=== PATIENT | female | born 1975 | race Caucasian/White ===

== ENCOUNTER 2018-08-05 12:47 | Emergency (ER) | payer OTHER ==
--- NOTE | 2018-08-05 12:56 | Emergency Department Record ---
History of Present Illness - General Chief complaint: Flank Pain Stated complaint: rt flank pain Time Seen by Provider: 08/05/18 12:55 Source: Patient, Old records reviewed Mode of Arrival: Ambulatory Limitations: No limitations - History of Present Illness Initial comments: 43 yo female presents with right flank pain that has been fairly constant since the weekend. The pain remains in the right side. No fevers, chills, nausea, vomiting or diarrhea. No dysuria. No hematuria. The intensity does fluctuate at times. No history of renal stones. No other recent changes in her health. PCP is in [place]. She has an IUD in place. The pain does not seem to change with movement. No rash. MD Complaint: Other (Right Flank Pain) -: Days(s) Radiation: R flank Severity: Moderate Quality: Aching, Sharp Consistency: Constant Improves with: None Worsens with: None Associated Symptoms: Denies other symptoms - Related Data Additional Female Hx Detail: Contraception Home Medications Medication Instructions Recorded Confirmed Last Taken Sertraline HCl [Zoloft] 25 mg PO DAILY 08/05/18 08/05/18 Unknown Previous Rx's Medication Instructions Recorded Cyclobenzaprine HCl [Flexeril] 10 mg PO TID #15 tablet 08/05/18 Allergies Allergy/AdvReac Type Severity Reaction Status Date / Time naproxen [From Naprosyn] AdvReac VOMITING Verified 08/05/18 12:57 Review of Systems Constitutional: Denies: Chills, Fever, Malaise, Weakness Eyes: Denies: Eye discharge ENT: Denies: Congestion, Throat pain Respiratory: Denies: Cough, Dyspnea Cardiovascular: Denies: Chest pain, Palpitations, Syncope Endocrine: Denies: Fatigue Gastrointestinal: Reports: As per HPI, Abdominal pain Genitourinary: Denies: Dysuria, Hematuria, Urgency Musculoskeletal: Reports: As per HPI, Back pain. Denies: Arthralgia Skin: Denies: Bruising, Change in color, Rash Neurological: Denies: Confusion, Headache, Weakness Psychiatric: Denies: Anxiety Hematological/Lymphatic: Denies: Blood Clots, Easy bleeding, Easy bruising, Swollen glands Past Medical History - SOCIAL HISTORY Smoking Status: Never smoker Drug Use: None - RESPIRATORY Hx Respiratory Disorders: No - CARDIOVASCULAR Hx Cardio Disorders: No - NEURO Hx Neuro Disorders: No - GI Hx Reflux: Yes Hx Hiatal Hernia: Yes - Hx Genitourinary Disorders: No - ENDOCRINE Hx Diabetes: No Hx Thyroid Disease: No - MUSCULOSKELETAL Hx Arthritis: Yes - PSYCH Hx Anxiety: Yes Hx Depression: Yes - HEMATOLOGY/ONCOLOGY Hx Anemia: No Hx Blood Disorders: No Hx Bruising: No Family Medical History Family Hx Comment (NOT TO BE USED IN PLACE OF ITEMS BELOW): none Hx Cancer: Grandparents Physical Exam - General General Appearance: Alert, Oriented x3, Cooperative, No acute distress Limitations: No limitations - Head Head exam: Atraumatic, Normal inspection - Eye Eye exam: Normal appearance. negative: PERRL, Conjunctival injection, Scleral icterus - ENT ENT exam: Normal exam, Mucous membranes moist Ear exam: Normal external inspection Nasal Exam: Normal inspection Mouth exam: Normal external inspection - Neck Neck exam: Normal inspection - Respiratory Respiratory exam: Normal lung sounds bilaterally. negative: Respiratory distress - Cardiovascular Cardiovascular Exam: Regular rate, Normal rhythm, Normal heart sounds - GI/Abdominal GI/Abdominal exam: Soft. negative: Distended, Guarding, Tenderness - Rectal Rectal exam: Deferred - exam: Deferred - Extremities Extremities exam: Normal inspection. negative: Tenderness - Back Back exam: Reports: Normal inspection, CVA tenderness (R) (mild - not reproduced with bending or twisting), Full ROM, Tenderness. Denies: Muscle spasm, Rash noted, Vertebral tenderness - Neurological Neurological exam: Alert, Oriented X3 - Psychiatric Psychiatric exam: Normal affect, Normal mood. negative: Agitated, Anxious - Skin Skin exam: Dry, Intact, Normal color, Warm Course - Reevaluation(s) Reevaluation #1: No significant abnormalities on the vitals 08/05/18 12:58 08/05/18 13:16 Blood noted on UA. HCG is negative CT for stone ordered 08/05/18 13:36 08/05/18 15:33 CT negative for stone on the right There is a tiny punctate stone in the left kidney 08/05/18 15:[address] findings, UA We discussed home care, signs to monitor for immediate return and close follow up with the PCP 08/05/18 15:44 Disposition Disposition: Discharge Clinical Impression: Flank pain, acute Disposition: Home, Self-Care Condition: (1) Good Instructions: Flank Pain (ED) Additional Instructions: Call your doctor for close follow up and a recheck in the neck 2-3 days if not improved Return if you have fever, vomiting, and new concerns Prescriptions: Cyclobenzaprine HCl [Flexeril] 10 mg PO TID #15 tablet Forms: Patient Portal Access Time of Disposition: 15:34 Quality - Quality Measures Quality Measures: N/A - Blood Pressure Screening Does Patient Have Any of the Following: No Blood Pressure Classification: Pre-Hypertensive BP Reading Systolic Measurement: 124 Diastolic Measurement: 80 Screening for High Blood Pressure: < Pre-Hypertensive BP, F/U Documented > [ [id number]] Pre-Hypertensive Follow-up Interventions: Referral to alternative/primary care provider.
[2018-08-05 13:14] LABS: URINE APPEARANCE CLEAR; URINE BILIRUBIN NEGATIVE (NEGATIVE); URINE BLOOD SMALL (NEGATIVE); URINE COLOR YELLOW; URINE GLUCOSE (UA) NEGATIVE (NEGATIVE); URINE KETONE NEGATIVE (NEGATIVE); URINE LEUKOCYTE ESTERASE NEGATIVE (NEGATIVE); URINE NITRITE NEGATIVE (NEGATIVE); URINE PROTEIN NEGATIVE (NEGATIVE); URINE UROBILINOGEN 0.2 E.U./dL (0.20 - 1.00)
[2018-08-05 13:21] LABS: URINE WBC NONE SEEN (0-2/hpf)
--- NOTE | 2018-08-06 10:59 | CT SCAN REPORT ---
EXAM: CT OF THE ABDOMEN AND PELVIS WITHOUT CONTRAST HISTORY: RIGHT SIDED FLANK PAIN. TECHNIQUE: Noncontrast CT of the abdomen and pelvis was obtained. Comparison: None. FINDINGS: The lung base is clear. Unremarkable noncontrast CT appearance of the liver, spleen, adrenal glands, and pancreas. The gallbladder is surgically absent. No hydronephrosis. Punctate 1 mm calculus within the left kidney. No calculi is seen within the ureters or urinary bladder. Minimal circumferential wall thickening of the urinary bladder. The stomach and small bowel are not dilated. No focal colonic thickening or inflammatory changes. No free air or free fluid in the abdomen or pelvis. Intrauterine device noted within the uterus. The abdominal aorta has a normal course and caliber. Evidence of left femoroacetabular osteoarthrosis. Minimal scattered thoracolumbar spine degenerative findings. No definite acute osseous findings or aggressive focal bone lesions. IMPRESSION: 1. NO EVIDENCE OF OBSTRUCTIVE UROPATHY. PUNCTATE NONOBSTRUCTING LEFT INTRARENAL CALCULUS. 2. MINIMAL CIRCUMFERENTIAL WALL THICKENING OF THE URINARY BLADDER, POSSIBLY ARTIFACTUAL RELATED TO UNDERDISTENTION ALTHOUGH CORRELATION WITH URINALYSIS IS RECOMMENDED TO EXCLUDE CYSTITIS. 3. NORMAL APPENDIX. 4. SURGICAL ABSENCE OF THE GALLBLADDER. JOB NUMBER: [id number] [facility]
== END 2018-08-05 15:47 | disposition home or self-care (01) ==
LOC: ER 12:47
DX: N20.0 Calculus of kidney (principal); M54.5 Low back pain
CPT/HCPCS: 74176; 81001; 81025; 99283; 99284